=== PATIENT | female | born 1965 ===

== ENCOUNTER 2021-06-15 12:15 | Outpatient (RCR) | payer OTHER, SELFPAY ==
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
[2021-06-02 13:09] VITALS: BMI 25.8
--- NOTE | 2021-06-03 12:36 | PC.NURSE ---
Patient is not scheduled to be at [facility] today as she stated she has a doctors appointment.
--- NOTE | 2021-06-03 14:27 | PC.NURSE ---
case opened in tx team
--- NOTE | 2021-06-10 16:29 | P.PNPSP_ITS ---
Subjective Subjective Date of Service: 06/10/21 Reason For Visit: Depression, Anxiety, PTSD Guardianship: No Medical Problems Affecting Mental Status: No Interim History: Michelle reports she has been taking the BuSpar since last week, has not yet noticed any difference regarding level of anxiety. Continues with anxiety, difficulty adjusting to group therapy format. States she has felt triggers regarding the of her son due to another participants breathing and hyperventilation during group. Reports that she is feeling better today, more in control. Denies any thought of harm to self or others, no SI, no safety concern at this time. Medication Compliance: Yes Side effects from medications: No Attending Groups: Yes Review of Systems Acute medical concerns: No Medical Review of Systems: unchanged Review of Systems Review of Systems Yes all other systems are reviewed and are negative Constitutional: Reports no additional constitutional complaints Eyes: Reports no additional eye complaints Reports Normal hearing present Cardiovascular: Reports no additional cardiovascular complaints Respiratory: Reports no additional respiratory complaints Reports Normal hearing present Mental Status Exam Mental Status Exam Narrative: Well-developed, well-nourished female, in no apparent distress. Eye contact within normal limits, alert and oriented x4. No involuntary movements noted, motor activity calm, posture within normal limits. Ambulation not observed. Cognition and memory appear grossly intact. Denies any thought of harm to self or others, no AH, no VH. No safety concerns. Patient Appearance: Well Grooomed and Appropriate Patient Orientation: Person, Place, Time and Situation Level of Consciousness: Awake, Appropriate and Alert Patient Behavior: Appropriate and Cooperative Mood Description: Appropriate and Anxious Affect Description: Appropriate, Depressed and Anxious Patient Cognition Impaired: No Ability to Follow Directions: Excellent Speech Pattern: Clear, Appropriate, Spontaneous Speech and Coherent Memory Description: Intact Hallucinations: None Delusions: Not Present Thought Process: Intact, Goal Oriented and Linear Thought Content: positive for Intact, positive for Goal Oriented, positive for Linear and positive for Logical Depressive Symptoms: Increased Anxiety, Difficulty Sleeping, Loss of Int. in Activity, Unhappiness, Increased Fatigue and Loss of Energy Judgement: Fair Diagnostics Vital Signs (24Hr): Body Mass Index 25.8 Assessment & Plan Assessment & Plan (1) SHRAVAN (generalized anxiety disorder): Status: Acute Code(s): F41.1 - Generalized anxiety disorder Assessment and Plan: Client reports she has been utilizing BuSpar daily, has not yet noticed affect. Medication education provided. Discussed other medications, she states she has a plan to meet with her psychiatrist tomorrow, and is not interested in any type of medication changes at this time. Continues with Prozac, BuSpar, Klonopin as prescribed. She has spoke with her therapist, as she was triggered by several incidents in groups. This is her 1st time participating in a group therapy format, and she has found it difficult to adjust at times. She stated that she started program with assumption that others in the group would have similar diagnoses and concerns to her. She states that she fell today was a good day regarding groups, and that she is gaining insight and learning healthy coping skills, alt andrea it has been an adjustment. Client reports she is grieving the loss of her son. We discussed grief process in general, and possibility of participating in a grief support group in the community. She stated that she has thought about this in the past, and plans to pursue this when she has completed PHP. (2) PTSD (post-traumatic stress disorder): Status: Acute Code(s): F43.10 - Post-traumatic stress disorder, unspecified (3) Major depressive disorder, recurrent severe without psychotic features: Status: Acute Code(s): F33.2 - Major depressive disorder, recurrent severe without psychotic features Assessment and Plan: Denies any thought of harm to self or others, no safety concern at this time. Continues with Wellbutrin and Prozac as prescribed. Assessment and Plan: 1. Continue current medication regimen as prescribed by outpatient psychiatrist. 2. Encouraged to continue in PHP program, as she is reporting benefit. 3. Follow-up as per protocol. Patient educated on: diagnosis, medication risk/benefits and therapeutic strategies Informed Consent: understands Reason for contiued partial hosp. stay Substantial Risk for: inability to function and med/psych decompensation Certification I certify that partial hospital treatment is medically necessary due to the symptoms and problems resulting from the patient's mental illness and the failure to treat the patient at the partial hospital level of care would likely result in the patient requiring inpatient psychiatric care which could not be prevented at a less intensive level of care. I spent minutes with the patient and/or on the patient floor today, greater than?50% of which was spent counseling/coordinating care. Discharge Plan Discharge Attending provider: Rico Gan Primary Care Provider: Leann Elliott Medications: No Action levothyroxine 175 mcg Tablet 175 mcg PO DAILY RF: 0 bupropion HCl 150 mg Tablet Sustained-Release 12 Hr 150 mg PO BID RF: 0 fluticasone propion-salmeterol [Advair Diskus] 250-50 mcg/dose Blister With Device 1 inh INHALATION BID RF: 0 rabeprazole 20 mg Tablet,Delayed Release (Dr/Ec) 20 mg PO DAILY RF: 0 clonazepam 0.5 mg Tablet 0.5 mg PO TID RF: 0 buspirone [BuSpar] 10 mg Tablet 10 mg PO BID RF: 0 zywmpnzpys-fnujfjbtlx-muk-cod [id number] mg Capsule 1 cap PO DAILY PRN (Reason: Migraine Headache) RF: 0 albuterol sulfate [Proventil HFA] 90 mcg/actuation Hfa Aerosol Inhaler 2 puff INHALATION Q6H PRN (Reason: shortness of breath) RF: 0 fluoxetine [Prozac] 20 mg Capsule 20 mg PO TID RF: 0 Referrals: Leann Elliott MD [Primary Care Provider] - 1 Week Telehealth Telehealth Location of provider rendering services: practice address Location of patient: address on file Patient Identification confirmed using: Name, : Yes Telehealth method: video Patient verbally consented to treatment: Yes Patient verbally consented to billing insurance company: Yes Patient informed of any privacy concerns related to visit: Yes Time spent with patient (mins): 15
--- NOTE | 2021-06-11 14:13 | PC.NURSE ---
the client did not attend today because she has an 11 am appointment with her prescriber.
--- NOTE | 2021-06-15 14:30 | P.PNPSP_ITS ---
Subjective Subjective Date of Service: 06/15/21 Reason For Visit: Depression, Anxiety, PTSD Guardianship: No Medical Problems Affecting Mental Status: No Interim History: Michelle reports feeling triggered during a group session this morning. She states that another participant was discussing the holidays during group and that they were grieving. She says that this brought up memories and emotions regarding her son, whom she is still grieving. She was tearful at times when explaining this. She states that she needed to step outside in order to get some fresh air and to gather her thoughts. continues with dysphoric mood, anxiety Medication Compliance: Yes Side effects from medications: No Attending Groups: Yes Review of Systems Acute medical concerns: No Medical Review of Systems: unchanged Mental Status Exam Mental Status Exam Narrative: Well-developed, well-nourished female, in no apparent distress. Eye contact within normal limits, alert and oriented x4. Motor activity calm. Cognition and memory appear grossly intact. Denies any thought of harm to self or others, no AH, no VH. No safety concerns. Patient Appearance: Well Grooomed and Appropriate Patient Orientation: Person, Place, Time and Situation Level of Consciousness: Awake, Appropriate and Alert Patient Behavior: Appropriate and Cooperative Mood Description: Appropriate, Depressed and Anxious Affect Description: Appropriate, Depressed (tearful at times) and Anxious Patient Cognition Impaired: No Ability to Follow Directions: Excellent Speech Pattern: Clear, Appropriate, Spontaneous Speech and Coherent Memory Description: Intact Hallucinations: None Delusions: Not Present Thought Process: Intact, Goal Oriented and Linear Thought Content: positive for Intact, positive for Goal Oriented, positive for Linear and positive for Logical Depressive Symptoms: Increased Anxiety, Difficulty Sleeping, Crying Spells, Loss of Int. in Activity, Unhappiness, Increased Fatigue, Loss of Energy and Difficulty Concentrating Judgement: Fair Diagnostics Vital Signs (24Hr): Body Mass Index 25.8 Assessment & Plan Assessment & Plan (1) SHRAVAN (generalized anxiety disorder): Status: Acute Code(s): F41.1 - Generalized anxiety disorder Assessment and Plan: Client continues with symptoms of anxiety. Reports she is taking BuSpar as ordered. Reports that she is running low on Klonopin, as she had used it r ecently when triggered during groups. She states that she is trying to use it only when absolutely necessary over the next 3 days until she can have next prescription filled. She reports that she is utilizing alternative method it is to help lower anxiety including medication, stepping outside for fresh air. Discussed other ways, including Lavender scents, soothing tea. She stated she would consider these. (2) PTSD (post-traumatic stress disorder): Status: Acute Code(s): F43.10 - Post-traumatic stress disorder, unspecified (3) Major depressive disorder, recurrent severe without psychotic features: Status: Acute Code(s): F33.2 - Major depressive disorder, recurrent severe without psychotic features Assessment and Plan: Client continues with symptoms of depression. She states that she is finding groups helpful. She states that upcoming holiday will be difficult, as she continues to grieve the loss of her son. She states that the holidays are s pecially difficult time of year for her. She continues taking fluoxetine and bupropion as prescribed. Reports that although she has been triggered several times during groups, overall she is finding them helpful in processing her emotions and learning new healthy coping skills. She denies any type of thoughts of harm to herself or others, no safety concern at this time. Assessment and Plan: 1. Continue with current medication regimen. No refills needed at this time. 2. Follow-up as per protocol. Patient educated on: diagnosis, medication risk/benefits and therapeutic strategies Informed Consent: understands Reason for contiued partial hosp. stay Substantial Risk for: inability to function, rapid decompensation and med/psych decompensation Certification I certify that partial hospital treatment is medically necessary due to the symptoms and problems resulting from the patient's mental illness and the failure to treat the patient at the partial hospital level of care would likely result in the patient requiring inpatient psychiatric care which could not be prevented at a less intensive level of care. I spent minutes with the patient and/or on the patient floor today, greater than?50% of which was spent counseling/coordinating care. Discharge Plan Discharge Attending provider: Rico Gan Primary Care Provider: Laenn Elliott Medications: No Action levothyroxine 175 mcg Tablet 175 mcg PO DAILY RF: 0 bupropion HCl 150 mg Tablet Sustained-Release 12 Hr 150 mg PO BID RF: 0 fluticasone propion-salmeterol [Advair Diskus] 250-50 mcg/dose Blister With Device 1 inh INHALATION BID RF: 0 rabeprazole 20 mg Tablet,Delayed Release (Dr/Ec) 20 mg PO DAILY RF: 0 clonazepam 0.5 mg Tablet 0.5 mg PO TID RF: 0 buspirone [BuSpar] 10 mg Tablet 10 mg PO BID RF: 0 [id number]-kdsufyrare-pxo-cod [id number] mg Capsule 1 cap PO DAILY PRN (Reason: Migraine Headache) RF: 0 albuterol sulfate [Proventil HFA] 90 mcg/actuation Hfa Aerosol Inhaler 2 puff INHALATION Q6H PRN (Reason: shortness of breath) RF: 0 fluoxetine [Prozac] 20 mg Capsule 20 mg PO TID RF: 0 Referrals: Leann Elliott MD [Primary Care Provider] - 1 Week Telehealth Telehealth Location of provider rendering services: practice address Location of patient: address on file Patient Identification confirmed using: Name, : Yes Telehealth method: video Patient verbally consented to treatment: Yes Patient verbally consented to billing insurance company: Yes Patient informed of any privacy concerns related to visit: Yes Time spent with patient (mins): 15
--- NOTE | 2021-06-16 14:43 | PC.NURSE ---
Patient called the program this morning and spoke to Janine stating she did not want to continue the program as it was too triggering for her. Called patient to review discharge medications. Patient answered the phone and told me she would call me back as she is at the pharmacy. Awaiting a call back.
== END 2021-06-16 09:09 | disposition home or self-care (01) ==
LOC: HO.PHPA 12:15
PROVIDERS: PCP Family Medicine; Visit Provider Psychiatry & Neurology Psychiatry
DX: F33.2 Major depressive disorder, recurrent severe without psychotic features (principal); F43.10 Post-traumatic stress disorder, unspecified; F41.1 Generalized anxiety disorder; Z79.899 Other long term (current) drug therapy
CPT/HCPCS: 90791; 90853